=== PATIENT | male | born 1990 | race Hispanic/Latino ===

== ENCOUNTER 2020-06-06 15:44 | Emergency (ER) | payer OTHER ==
[~2020-06-06] VITALS: Ht 165.1 cm; Wt 127.0 kg
--- NOTE | 2020-06-06 16:48 | Diagnostic Imaging Report ---
ELBOW 3 VIEW LT - [facility] - Multiple views HISTORY: left elbow pain s/p fall COMPARISON: None available. FINDINGS: Bones: No acute displaced fracture. Osseous alignment is within normal limits. Joints: The joint spaces are well-maintained. Soft tissues: The soft tissues appear unremarkable. IMPRESSION: No acute radiographic abnormality. Signed by: Mauro Calderon MD on 06/06/2020 4:44 PM
[2020-06-06] MEDS ORDERED: IBUPROFEN 600 MG TAB PO STA (16:56)
[2020-06-06] MEDS ORDERED: IBUPROFEN 600 MG TAB ONE (17:14)
--- NOTE | 2020-06-06 17:20 | Emergency Department Note ---
History of Present Illnes History of Present Illness Chief Complaint: Extremity Trauma/Pain History of Present Illness This is a 30 year old right handed male who presents with left elbow pain status post fall yesterday. The patient states that he slipped and fell backwards onto his outstretched left hand. He denies hitting his elbow on the ground. Denies any other injuries. He denies hitting his head. Nausea loss of conscious. He denies any numbness tingling or weakness of his left arm or hand. He denies any wrist or hand pain. Pain is exacerbated with movement of his elbow. Historian: Patient Arrival Mode: Car Onset (how long ago): day(s) Location: left elbow Quality: dull Radiation: Reports non-radiation Severity: moderate Onset quality: sudden Duration (how long): day(s) (yesterday) Timing of current episode: constant Progression: unchanged Chronicity: new Context: Reports trauma/injury Relieving factors: rest Exacerbating factors: movement Past Medical/Family History Physician Review I have reviewed the patient's past medical and family history. Any updates have been documented here. Past Medical History Recent Fever: No Clinical Suspicion of Infectio: No New/Unexplained Change in Ment: No Past Medical History: None Past Surgical History: None Social History Smoking Cessation: Never Smoker Counseling Performed: No Alcohol Use: Occasional Any Illegal Drug Use: No Physically hurt or threatened: No Other Any Pre-Existing Lines (PICC,: No Review of Systems Review of Systems Constitutional: Reports no symptoms Cardiovascular: Reports no symptoms Respiratory: Reports no symptoms; Denies as per HPI, Denies change in phlegm color, Denies chest congestion, Denies cough, Denies hemoptysis, Denies excessive phlegm production, Denies pain on inspiration, Denies pain with cough, Denies dyspnea, Denies dyspnea on exertion, Denies snoring, Denies stridor, Denies wheezing, Denies other Musculoskeletal: Reports as per HPI Integumentary: Reports no symptoms Neurological: Reports no symptoms Psychological: Reports no symptoms Review of other systems: All other systems negative Physical Exam Related Data Allergies: Coded Allergies: No Known Allergies (Unverified , 06/06/20) Triage Vital Signs Vital Signs Date Time Temp Pulse Resp B/P (MAP) Pulse Ox O2 Delivery O2 Flow Rate FiO2 06/06/20 16:12 99.4 105 18 146/87 99 Physical Exam CONSTITUTIONAL Constitutional: Present well-developed, Present well-nourished HENT HENT: Present normocephalic, Present atraumatic, Present oropharynx clear/moist, Present nose normal EYES NECK Neck: Present ROM normal PULMONARY Pulmonary: Present effort normal, Present breath sounds normal CARDIOVASCULAR Cardiovascular: Present regular rhythm, Present heart sounds normal, Present capillary refill normal, Present normal rate GASTROINTESTINAL Abdominal: Present soft, Present nontender, Present bowel sounds normal GENITOURINARY SKIN MUSCULOSKELETAL Musculoskeletal: Present tenderness (he has tenderness to the lateral aspect of his left elbow. Patient has pain with active range of motion, however has no pain with passive range of motion.); Absent edema, Absent deformity, Absent swelling NEUROLOGICAL Neurological: Present alert, Present no gross motor or sensory deficits (sensation intact over her left upper extremity) PSYCHOLOGICAL Psychological: Present mood/affect normal, Present judgement normal Results Imaging Imaging Comments ELBOW 3 VIEW LT - [facility] - Multiple views HISTORY: left elbow pain s/p fall COMPARISON: None available. FINDINGS: Bones: No acute displaced fracture. Osseous alignment is within normal limits. Joints: The joint spaces are well-maintained. Soft tissues: The soft tissues appear unremarkable. IMPRESSION: No acute radiographic abnormality. Signed by: Mauro Fan MD on 06/06/2020 4:44 PM Dictated By: MAURO FAN MD [id number] Transcribed By: CODY on 06/06/201643 Assessment & Plan Medical Decision Making MDM Patient presented with trauma to left elbow. Rectal included, but is not limited to fracture, sprain, strain, ligamentous injury. Patient's x-ray was normal. Patient is to follow up with PCP. She was instructed that if he continues to have pain within a week to seek another x-ray. In the meantime he is to return should symptoms worsen or have any numbness, tingling, weakness, any discoloration such as an turning blue or questions or concerns. Motrin for pain. Sling as needed. Range of movement exercises. Assessment & Plan Final Impression: (1) Elbow sprain Depart Disposition: HOME, SELF-CARE Last Vital Signs Date Time Temp Pulse Resp B/P (MAP) Pulse Ox O2 Delivery O2 Flow Rate FiO2 06/06/20 16:12 99.4 105 18 146/87 99 Medications in the ED Ibuprofen 600mg DEMETRIA ALEXANDER MD Jun 06, 2020 16:54
== END 2020-06-06 17:08 | disposition home or self-care (01) ==
LOC: FSED 16:01
DX: S53.402A Unspecified sprain of left elbow, initial encounter (principal); W01.0XXA Fall on same level from slipping, tripping and stumbling without subsequent striking against object, initial encounter
CPT/HCPCS: 99283